=== PATIENT | female | born 1960 | race Caucasian/White ===

== ENCOUNTER 2017-06-10 17:41 | Observation (INO) | payer BC ==
[~2017-06-10] VITALS: Ht 157.5 cm; Wt 75.1 kg
[2017-06-10 18:10] LABS: HEMATOCRIT 43.8 % (36.0-46.0); MCH 30.4 PG (29.0-34.0); MCHC 33.1 G/DL (30.0-36.0); MCV 91.8 FL (83-99); MEAN PLAT.VOLUME 9.7 uM^3 (9.5-12.4); PLATELET COUNT 224 K/uL (156-360); RBC DIS.WIDTH-CV 12.9 % (11.8-14.6); RBC DIS.WIDTH-SD 43.9 % (39-53); RED BLOOD COUNT 4.77 M/uL (3.80-5.20)
[2017-06-10 18:19] LABS: CHLORIDE 105 mEq/L (99-109); POTASSIUM 3.9 mEq/L (3.7-5.4); SODIUM 140 mEq/L (136-147)
[2017-06-10 18:20] LABS: GLUCOSE 86 mg/dL (70-99)
[2017-06-10 18:22] LABS: ANION GAP 10 MEQ/L (2-14)
[2017-06-10 18:24] LABS: GFR ESTIMATE (CALCULATED) > 59 mL/min/
[2017-06-10 18:25] LABS: UREA NITROGEN (BUN) 16 mg/dL (9-23)
[2017-06-10 18:31] LABS: TROP-I INTERPRETATION NEGATIVE; TROPONIN-I < 0.01 ng/mL (0.0-0.30)
[2017-06-10] MEDS ORDERED: PRILOSEC20 MG PO (18:57)
[2017-06-10 19:01] LABS: D-DIMER ELISA < 150.00 ng/mLDDU (<230)
[2017-06-10] MEDS ORDERED: MAXALT MLT10 MG PO (21:12)
[2017-06-10] MEDS ORDERED: METHIMAZOLE5 MG PO (21:12)
[2017-06-10] MEDS ORDERED: TUMERIC PO (21:12)
[2017-06-10] MEDS ORDERED: GRAPE SEED EXTR50 MG PO (21:13)
[2017-06-10] MEDS ORDERED: CORAL CALCIUM1 EAC2 PO (21:13)
[2017-06-10 22:19] LABS: TOTAL BILIRUBIN 0.4 mg/dL (0.0-1.0)
[2017-06-10 22:20] LABS: ALKALINE PHOSPHATASE 58 IU/L (3-129)
[2017-06-10 22:23] LABS: DIRECT BILIRUBIN 0.1 mg/dL (0.0-0.3)
[2017-06-10 22:24] LABS: LIPASE 35 U/L (1.0-51.0)
[2017-06-10 23:15] VITALS: BP 141/73
[2017-06-11 01:43] LABS: TROP-I INTERPRETATION NEGATIVE; TROPONIN-I < 0.01 ng/mL (0.0-0.30)
[2017-06-11 04:24] VITALS: BP 119/69
[2017-06-11 05:28] LABS: HEMATOCRIT 43.6 % (36.0-46.0); MCH 30.1 PG (29.0-34.0); MCHC 32.6 G/DL (30.0-36.0); MCV 92.4 FL (83-99); MEAN PLAT.VOLUME 10.3 uM^3 (9.5-12.4); PLATELET COUNT 223 K/uL (156-360); RED BLOOD COUNT 4.72 M/uL (3.80-5.20); WHITE BLOOD COUNT 7.8 K/uL (4.1-10.2)
[2017-06-11 05:42] LABS: TROP-I INTERPRETATION NEGATIVE; TROPONIN-I < 0.01 ng/mL (0.0-0.30)
[2017-06-11 05:54] LABS: ANION GAP 10 MEQ/L (2-14); CHLORIDE 106 MEQ/L (99-109); GFR ESTIMATE (CALCULATED) > 59 mL/min/; GLUCOSE 83 mg/dL (70-99); POTASSIUM 4.1 MEQ/L (3.7-5.4); SAMPLE HEMOLYSIS CHECK 0; SAMPLE ICTERIC CHECK 0; SAMPLE LIPEMIA CHECK 0; SODIUM 140 MEQ/L (136-147); UREA NITROGEN (BUN) 17 mg/dL (9-23)
[2017-06-11 09:36] VITALS: BP 139/75
[2017-06-11 11:41] VITALS: BP 112/74
[2017-06-11] MEDS ORDERED: AMLODIPINE BESYL5 MG PO (12:58)
[2017-06-11] MEDS ORDERED: ASPIR-LOW81 MG PO (12:59)
== END 2017-06-11 17:16 | disposition home or self-care (01) ==
LOC: EME 17:41 → EDOF 21:33 → ENRESERV 21:34 → 5WEST 23:05
PROVIDERS: Emergency Medicine; Hospitalist
DX: R07.9 Chest pain, unspecified (principal); J44.9 Chronic obstructive pulmonary disease, unspecified; E03.9 Hypothyroidism, unspecified; E05.00 Thyrotoxicosis with diffuse goiter without thyrotoxic crisis or storm; I25.10 Atherosclerotic heart disease of native coronary artery without angina pectoris; F17.210 Nicotine dependence, cigarettes, uncomplicated; R55 Syncope and collapse; K21.9 Gastro-esophageal reflux disease without esophagitis
CPT/HCPCS: 71020; 71275; 80048; 80076; 83690; 84484; 85027; 85379; 93005; G0378; J1650